=== PATIENT | male | born 1945 | race Caucasian/White ===

== ENCOUNTER 2018-07-17 16:50 | Inpatient (IN) ==
[2018-07-17] MEDS ORDERED: IOPAMIDOL 100 ML BOTTLE IV ONE (16:51)
[2018-07-17] MEDS ORDERED: IPRATROPIUM/ALBUTEROL 3 ML AMPUL.NEB NEB ONE (17:22)
[2018-07-17] MEDS ORDERED: ACETAMINOPHEN 1,000 MG/100 ML BOTTLE IV ONE (17:54)
--- NOTE | 2018-07-17 17:57 | XRay Report ---
INDICATION: Dyspnea TECHNIQUE: PA and lateral upright chest x-ray COMPARISON: Previous chest x-rays dated 06/25/2018, 01/22/2013 FINDINGS:Hyperexpansion and changes consistent with COPD. No focal pulmonary parenchymal infiltrate or mass. Heart size and vascularity are normal. Marine and mediastinum are negative. No pleural fluid. IMPRESSION: 1. Probable COPD 2. No acute abnormality. No interval change Interpreted and Authenticated by: Dandre Raza 07/17/18
[2018-07-17] MEDS ORDERED: 0.9 % SODIUM CHLORIDE 1,000 ML IV ONE (18:18)
[2018-07-17 18:19] LABS: ALT/SGPT 8 U/l (0-40); Albumin/Globulin Ratio 1.7 (1.0-2.3); Alkaline Phosphatase 100 U/L (39-117); Blood Urea Nitrogen 8 mg/dl (8-23)
[2018-07-17 19:34] LABS: Mean Cell Volume 88.6 fL (80.0-100.0); Mean Corpuscular HGB Conc 33.8 g/dL (31.0-36.0); Platelet Count 245 K/mcL (140-440); RBC 4.32 M/mcL (4.50-5.90); Red Cell Distribution Width 12.6 % (11.5-14.5)
[2018-07-17 19:55] LABS: Band Neutrophils % 9 % (0-10); Lymphocytes % 4 % (15-49); Monocytes % (Manual) 4 % (1-12); Platelet Estimate NORMAL (NORMAL); RBC Morphology NORMAL (NORMAL); Segmented Neutrophils % 80 % (38-78)
--- NOTE | 2018-07-17 19:57 | Emergency Department Note ---
SOB HPI - General Chief Complaint: Shortness of Breath/Dyspnea Stated Complaint: SOB/COPD Time Seen by Provider: 07/17/18 17:58 Source: patient Mode of arrival: ambulatory Limitations: no limitations - History of Present Illness 72-year-old male presents with shortness of breath. He did get a little bit short of breath yesterday but he took his inhaler and he was better. Today he is much more short of breath. States this morning he shuffled much just now and he was fine and had no shortness of breath but this afternoon he was just sitting there and began getting more short of breath. Nothing he does seems to make it better. He does have a cough but not any more than usual. Has known COPD. He does have a fever and chills today. States he might of had some chills yesterday unsure. No sore throat or ear pain. No nasal congestion. No abdominal pain. No nausea, vomiting, or diarrhea. No rash. Does have some body aches and generally does not feel well. - Related Data Home Medications Medication Instructions Recorded Confirmed cholecalciferol (vitamin D3) 2,000 2,000 unit PO ONCE 06/28/16 07/17/18 unit capsule aspirin 81 mg tablet,delayed 81 mg PO QDAY 12/26/16 07/17/18 release Previous Rx's Medication Instructions Recorded lisinopril 10 mg tablet 10 mg PO QDAY #90 tab 09/25/17 ipratropium 20 mcg-albuterol 100 1 puff INHALATION QID #4 g 01/22/18 mcg/actuation mist for inhalation albuterol sulfate HFA 90 2 puff INHALATION Q6H PRN #8.5 g 06/25/18 mcg/actuation aerosol inhaler Allergies Allergy/AdvReac Type Severity Reaction Status Date / Time No Known Drug Allergies Allergy Verified 06/25/18 09:10 Review of Systems All systems ED: reviewed and negative except as stated. Past Medical History - Past Medical History [facility] Narrative: Medical History (Last Reviewed 06/25/18 @ 09:17 by Perla Odonnell PA-C) Cholecystitis (Acute) Colon cancer (Chronic) Hypertension, essential (Chronic) Osteoarthritis (Chronic) Anxiety (Chronic) Tobacco abuse (Chronic) Past Surgical History (Last Reviewed 06/25/18 @ 09:17 by Perla Odonnell PA-C) History of colon resection (Chronic 12/12/12) History of colonoscopy (Chronic 07/17/12) History of ileostomy (Chronic 09/11/13) History of sigmoidoscopy (Chronic 12/12/13) History of surgery (Chronic 09/11/13) Medical history: Reports: cancer (colon cancer), hypertension, osteoporosis Surgical history ED: Reports: colectomy, other (ileostomy with closure) - Social History smoking status: Former smoker Alcohol use: Reports: Unknown Drug use: Reports: none Physical Exam Limitations: no limitations General appearance: alert Head: atraumatic, normocephalic, normal inspection Eye: Present: normal appearance. Absent: conjunctival injection ENT: normal exam, normal oropharynx, mucous membranes moist, TM's normal bilaterally, normal external ear exam Neck: Present: normal inspection, trachea midline. Absent: tenderness, lymphadenopathy Chest: Present: symmetric chest wall rise Respiratory: Present: wheezes (Expiratory wheezes throughout), other (Mildly labored breathing on arrival. Normal respiratory rate after oxygen.). Absent: respiratory distress, stridor, accessory muscle use Cardiovascular: Present: tachycardia Abdominal: Present: soft, normal bowel sounds. Absent: distention, tenderness, guarding, mass Extremities: Present: normal inspection, normal capillary refill. Absent: pedal edema Neurological: Present: alert, oriented X3 Psychiatric: Present: normal affect, normal mood Skin: Present: warm, dry, intact, normal color. Absent: rash, cyanosis, diaphoresis, erythema Course Course Narrative: Patient has remained with oxygen saturations of 88-90% on [address] does show a probable right lower lobe infiltrate. This is consistent with his fever and elevated white count. At 2130 I did speak with the hospitalist, Dr. Bhat who agrees to accept this patient. I will go ahead and place ED transition orders [facility] Vital Signs Temperature 98.1 F 07/17/18 16:51 Pulse Rate 118 H 07/17/18 16:51 Respiratory Rate 28 H 07/17/18 16:51 Pulse Oximetry (%) 86 L 07/17/18 16:51 Temperature 100.3 F H 07/17/18 18:53 Pulse Rate 96 H 07/17/18 20:39 Respiratory Rate 16 07/17/18 20:39 Blood Pressure 128/68 07/17/18 20:39 Pulse Oximetry (%) 94 07/17/18 20:39 Shortness of Breath/Dyspnea - Lab Data Lab results reviewed: Yes I reviewed the patient's lab results. Result diagrams: 07/17/18 17:13 07/17/18 17:13 Lab Results 07/17/18 07/17/18 07/17/18 Range/Units 17:13 17:13 17:13 WBC 11.1 H (4.5-11.0) K/mcL RBC 4.32 L (4.50-5.90) M/mcL Hgb 12.9 L (13.5-16.5) g/dL Hct 38.2 L (41.0-55.0) % MCV 88.6 (80.0-100.0) fL MCH 29.9 (26.0-34.0) pg MCHC 33.8 (31.0-36.0) g/dL RDW 12.6 (11.5-14.5) % Plt Count 245 (140-440) K/mcL MPV 7.6 (7.4-10.4) fL Total Counted 100 Seg Neutrophils % 80 H (38-78) % Band Neutrophils % 9 (0-10) % Lymphocytes % 4 L (15-49) % Monocytes % (Manual) 4 (1-12) % Reactive Lymphocytes 3 H (0-2) % Platelet Estimate Normal (NORMAL) RBC Morphology Normal (NORMAL) VBG Lactic Acid 2.8 H (0.5-2.0) mmol/L Sodium 137 (133-145) mmol/L Potassium 5.0 (3.3-5.1) mmol/L Chloride 97 (96-108) mmol/L Carbon Dioxide 29 (22-30) mmol/L Anion Gap 11.0 (8-16) BUN 8 (8-23) mg/dl Creatinine 0.9 (0.7-1.2) mg/dl GFR Calculation 86 Glucose 111 H (70-105) mg/dL Calcium 9.8 (8.6-10.4) mg/dl Total Bilirubin 1.7 H (0.0-1.0) mg/dL AST 20 (0-37) U/l ALT 8 (0-40) U/l Alkaline Phosphatase 100 (39-117) U/L Total Protein 8.0 (5.9-8.4) gm/dL Albumin 5.0 (3.2-5.2) gm/dL Globulin 3.0 (2.2-3.7) gm/dL Albumin/Globulin Ratio 1.7 (1.0-2.3) Urine Color Urine Appearance Urine pH (5.0-9.0) Ur Specific [place] (1.000-1.035) Urine Protein (NEG) mg/dL Urine Glucose (UA) (NEG) mg/dL Urine Ketones (NEG) mg/dL Urine Occult Blood (<0.03) mg/dL Urine Nitrate (NEG) Urine Bilirubin (NEG) mg/dL Urine Urobilinogen (NEG) mg/dL Ur Leukocyte Esterase (NEG) /uL Urine RBC (0-1) /hpf Urine WBC (0-4) /hpf Ur Squamous Epith Cells (0-4) /hpf Urine Bacteria (0) /hpf Urine Mucus (0) /hpf Ur Culture Indicated? 07/17/18 Range/Units 19:20 WBC (4.5-11.0) K/mcL RBC (4.50-5.90) M/mcL Hgb (13.5-16.5) g/dL Hct (41.0-55.0) % MCV (80.0-100.0) fL MCH (26.0-34.0) pg MCHC (31.0-36.0) g/dL RDW (11.5-14.5) % Plt Count (140-440) K/mcL MPV (7.4-10.4) fL Total Counted Seg Neutrophils % (38-78) % Band Neutrophils % (0-10) % Lymphocytes % (15-49) % Monocytes % (Manual) (1-12) % Reactive Lymphocytes (0-2) % Platelet Estimate (NORMAL) RBC Morphology (NORMAL) VBG Lactic Acid (0.5-2.0) mmol/L Sodium (133-145) mmol/L Potassium (3.3-5.1) mmol/L Chloride (96-108) mmol/L Carbon Dioxide (22-30) mmol/L Anion Gap (8-16) BUN (8-23) mg/dl Creatinine (0.7-1.2) mg/dl GFR Calculation Glucose (70-105) mg/dL Calcium (8.6-10.4) mg/dl Total Bilirubin (0.0-1.0) mg/dL AST (0-37) U/l ALT (0-40) U/l Alkaline Phosphatase (39-117) U/L Total Protein (5.9-8.4) gm/dL Albumin (3.2-5.2) gm/dL Globulin (2.2-3.7) gm/dL Albumin/Globulin Ratio (1.0-2.3) Urine Color Yellow Urine Appearance Clear Urine pH 6.0 (5.0-9.0) Ur Specific [place] 1.016 (1.000-1.035) Urine Protein Neg (NEG) mg/dL Urine Glucose (UA) Negative (NEG) mg/dL Urine Ketones 5/tr A (NEG) mg/dL Urine Occult Blood Neg (<0.03) mg/dL Urine Nitrate Neg (NEG) Urine Bilirubin Neg (NEG) mg/dL Urine Urobilinogen 4.0 A (NEG) mg/dL Ur Leukocyte Esterase Neg (NEG) /uL Urine RBC 0 (0-1) /hpf Urine WBC < 1 (0-4) /hpf Ur Squamous Epith Cells 0 (0-4) /hpf Urine Bacteria 0 (0) /hpf Urine Mucus Few (0) /hpf Ur Culture Indicated? No - Radiology Data Radiology results reviewed: Yes I reviewed the patient's radiology results. Disposition Pt seen by [facility]EN[facility] BINDER/PA only: No Clinical Impression: SOB (shortness of breath), Hypoxia, Pneumonia, Lesion of pancreas Disposition: Xfer As Outpt/Obs ([facility]) Condition: Fair Referrals: Hammad Nieves MD [Primary Care Provider] - Time of Disposition: 21:43
[2018-07-17 19:59] LABS: Appearance,Urine CLEAR; Bacteria,Urine 0 /hpf (0); Bilirubin,Urine NEG (NEG); Color,Urine YELLOW; Glucose,Urine (UA) NEGATIVE (NEG); Leukocyte Esterase,Urine NEG /uL (NEG); Mucus,Urine FEW /hpf (0); Protein,Urine NEG (NEG); Specific Gravity,Urine 1.016 (1.000-1.035); Urine Blood NEG mg/dL (<0.03); Urine RBC 0 /hpf (0-1); Urine Squamous Epithelial Cell 0 /hpf (0-4); Urine WBC < 1 /hpf (0-4)
--- NOTE | 2018-07-17 21:02 | Cat Scan Report ---
CLINICAL INFORMATION: sob, hypoxia, fever COMPARISON: Chest x-rays dated 07/17/2018, 06/25/2018 TECHNIQUE: Axial contrast enhanced images through the chest. Sagittally and coronally reformatted images. MIP reformatted images. 80 mL contrast material injected intravenously. FINDINGS: Focal right lower lobe infiltrate. No dense consolidation. Infiltrate is nonspecific. No pneumonia is possible. A well-defined discrete mass is not identified. No evidence for malignancy. There is mild parenchymal density at the left lung base consistent with atelectasis. There is mild lingular density probably represents chronic scarring. Lungs are otherwise negative. No hilar or mediastinal lymphadenopathy. No axillary or supraclavicular adenopathy. No pleural fluid. No pericardial fluid. There is ordinary artery calcification No acute thoracic compression fractures. Sternum and ribs are negative. There is a 5 cm mass which is contiguous with the body of the pancreas. This is not imaged in its entirety. This appears solid. Pancreatic malignancy is possible. Routine abdominal CT scan is recommended for further evaluation. No other abnormalities in the upper abdomen IMPRESSION: 1. Nonspecific right lower lobe infiltrate may represent pneumonia 2. 5 cm mass which is contiguous the body of the pancreas. Further evaluation is necessary to evaluate for pancreatic malignancy The exam was performed using radiation dose optimization techniques including, but not limited to, automated exposure control, adjustment of the mA and/or kV according to patient size and use of iterative reconstruction technique. Interpreted and Authenticated by: Dandre Raza 07/17/18
[2018-07-17] MEDS ORDERED: LEVOFLOXACIN 500 MG/100 ML BAG IV ONE (21:19)
[2018-07-17] MEDS ORDERED: ACETAMINOPHEN 325 MG TABLET PO PRN ×2 (21:43→23:37)
[2018-07-17] MEDS ORDERED: ONDANSETRON 4 MG/2 ML VIAL IV PRN ×2 (21:43→23:37)
--- NOTE | 2018-07-17 21:43 | Emergency Department Note ---
ED Note Addendum Note Addendum: I discussed this patient with the mid-level provider and agree with splint and plan for admission for pneumonia
[2018-07-17] MEDS ORDERED: LEVOFLOXACIN 500 MG/100 ML BAG IV SCH (22:00)
[2018-07-17] MEDS ORDERED: 0.9 % SODIUM CHLORIDE 1,000 ML IV SCH (22:00)
--- NOTE | 2018-07-17 23:15 | Internal Med History&Physical ---
Medical - H&P: [facility] Patient information: Note initiated : 07/17/18 at 11:12 pm Service Date, if different from initiated Date: [] Patient: Dandre Rios 72 y/o M admitted on 07/17/18 for SOB/COPD. Chief Complaint: [] History of present illness: Mr. Rios is a 72 year old M Presented with shortness of breath and fever chills. Patient states that he started to feel short of breath yesterday while he was outside. When side used his inhaler and felt better. [place] fine the rest of the day. This morning he was outside shoveling and went in later in the day around 3 he started to notice shortness of breath especially after he had went up and down the stairs 3 times. He did not use his inhaler since he used it before the activity and is afraid to use it so soon. He went in the ED. He does have a cough but it is not particularly worse. He did come back from a cruise several months ago got ill afterwards and went to the doctor and received a Z-Satish where his cough did improve. Still has a bit of a chronic cough but it is better what is bad. But he did notice fevers and chills today. Denies chest pain. No abdominal pain nausea vomiting diarrhea. Uses inhalers at home but is not on home oxygen. In the ED was evaluated and found to have a right lower lobe pneumonia with elevated lactate tachycardia tachypnea fever. CT abdomen did show an incidentally found 5 cm pancreatic mass in body. Review of Systems: Pertinent positives as above. Denies headache/fever/chills/nausea/vomiting/chest or abdominal pain/diarrhea. Remaining 10 point review of systems reviewed negative Medical - H&P: PMH Medical history: Medical History (Last Reviewed 06/25/18 @ 09:17 by Perla Odonnell PA-C) Cholecystitis (Acute) Colon cancer (Chronic) Hypertension, essential (Chronic) Osteoarthritis (Chronic) Anxiety (Chronic) Tobacco abuse (Chronic) Past Surgical History (Last Reviewed 06/25/18 @ 09:17 by Perla Odonnell PA-C) History of colon resection (Chronic 12/12/12) History of colonoscopy (Chronic 07/17/12) History of ileostomy (Chronic 09/11/13) History of sigmoidoscopy (Chronic 12/12/13) History of surgery (Chronic 09/11/13) Family History (Last Reviewed 06/25/18 @ 09:17 by Perla Odonnell PA-C) Father Malignant neoplasm of lung Brother Malignant neoplasm Acute myocardial infarction Unknown Peritonitis Mother Arthritis Social History (Last Updated 06/25/18 @ 10:22 by Perla Odonnell PA-C) Patient quit smoking 11 years ago drinks alcohol occasionally lives at home with his Medical - H&P: Meds Home Medications Medication Instructions Recorded Confirmed Type cholecalciferol (vitamin D3) 2,000 2,000 unit PO ONCE 06/28/16 07/17/18 History unit capsule aspirin 81 mg tablet,delayed 81 mg PO QDAY 12/26/16 07/17/18 History release lisinopril 10 mg tablet 10 mg PO QDAY #90 tab 09/25/17 07/17/18 Rx ipratropium 20 mcg-albuterol 100 1 puff INHALATION QID #4 g 01/22/18 07/17/18 Rx mcg/actuation mist for inhalation albuterol sulfate HFA 90 2 puff INHALATION Q6H PRN #8.5 g 06/25/18 07/17/18 Rx mcg/actuation aerosol inhaler Allergies Allergy/AdvReac Type Severity Reaction Status Date / Time No Known Drug Allergies Allergy Verified 06/25/18 09:10 Medical - H&P: Exam - Constitutional Vitals: Temp Pulse Resp BP Pulse Ox 100.3 F H 88 19 115/68 94 07/17/18 18:53 07/17/18 22:08 07/17/18 22:08 07/17/18 22:08 07/17/18 22:08 Exam: General: Alert, Awake, No acute Distress Eyes/N/T: EOMI, PEERL, DMM Head/Neck: neck supple, normocephalic atraumatic CV: RRR, No murmurs, normal s1/s2 Pulm: Bilateral expiratory wheezing. Diminished bases, mild rhonchi abd: soft, nontender, +BS x4 Ext: no clubbing/cyanosis/edema Neuro: Alert, no focal deficits, moves all extremities, CN 2-12 grossly intact, symmetrical strength b/l upper/lower, sensations intact b/l upper/lower Skin: warm/dry Medical - H&P: Reslt - Labs CBC & Chem 7: 07/17/18 17:13 07/17/18 17:13 Labs: Short CBC 07/17/18 Range/Units 17:13 WBC 11.1 H (4.5-11.0) K/mcL Hgb 12.9 L (13.5-16.5) g/dL Hct 38.2 L (41.0-55.0) % Plt Count 245 (140-440) K/mcL BMP 07/17/18 17:13 Sodium 137 Potassium 5.0 Chloride 97 Carbon Dioxide 29 BUN 8 Creatinine 0.9 Glucose 111 H Calcium 9.8 Liver Function 07/17/18 Range/Units 17:13 Total Bilirubin 1.7 H (0.0-1.0) mg/dL AST 20 (0-37) U/l ALT 8 (0-40) U/l Alkaline Phosphatase 100 (39-117) U/L Albumin 5.0 (3.2-5.2) gm/dL Urine 07/17/18 Range/Units 19:20 Urine Color Yellow Urine Appearance Clear Urine pH 6.0 (5.0-9.0) Ur Specific [place] 1.016 (1.000-1.035) Urine Protein Neg (NEG) mg/dL Urine Glucose (UA) Negative (NEG) mg/dL - Impressions CT chest with right lobe L infiltrate and 5 cm mass in the body of pancreas Medical - H&P: A/P - Narrative A/P Narrative: A: *Pneumonia, community acquired: *AECOPD (does not use home oxygen) *Acute hypoxic respiratory failure: *Sepsis: *Pancreatic mass, incidental, 5 cm: History of colon cancer; follows with Dr. mendzoa *Hypertension * * P: -IV fluids, follow-up lactate -Rocephin/azithromycin -Pending blood and sputum cultures -Check pro-calcitonin and trend -steroids (wean), Nebs/RT, IS/Acapella -CA19-9 and CEA, f/u with Dr. Mendoza for pancreatic mass -CT abd/pelvis, just received contrast study so will wait several days - - -ppx: lovenox DNR
[2018-07-17] MEDS ORDERED: cefTRIAXone 2 GM in DEXTROSE 5% IN WATER 50 ML IV ONE (23:37)
[2018-07-17] MEDS ORDERED: SENNOSIDES 1 TABLET PO PRN (23:37)
[2018-07-17] MEDS ORDERED: MAGNESIUM SULFATE 2 GM/50 ML BAG IV PRN (23:37)
[2018-07-17] MEDS ORDERED: methylPREDNISolone SOD SUCC 125 MG/2 ML VIAL IV ONE (23:37)
[2018-07-17] MEDS ORDERED: POTASSIUM CHLORIDE 40 MEQ in DEXTROSE 5% IN WATER 500 ML IV PRN (23:37)
[2018-07-17] MEDS ORDERED: POLYETHYLENE GLYCOL 3350 17 GM PACKET PO PRN (23:37)
[2018-07-17] MEDS ORDERED: AZITHROMYCIN 500 MG in DEXTROSE 5% IN WATER 250 ML IV SCH (23:37)
[2018-07-17] MEDS ORDERED: POTASSIUM CHLORIDE 20 MEQ TABLET PO PRN ×2 (23:37)
[2018-07-17] MEDS ORDERED: PROMETHAZINE 12.5 MG SUPP.RECT PR PRN (23:37)
[2018-07-17] MEDS: 0.9 % SODIUM CHLORIDE 1,000 ML IV SCH (23:42)
[2018-07-17] MEDS ORDERED: methylPREDNISolone SOD SUCC 125 MG/2 ML VIAL ONE (23:44)
[2018-07-17] MEDS ORDERED: cefTRIAXone 1 GM VIAL ONE (23:52)
[2018-07-18] MEDS ORDERED: IPRATROPIUM/ALBUTEROL 3 ML AMPUL.NEB NEB ONE (00:13)
[2018-07-18] MEDS: IPRATROPIUM/ALBUTEROL 3 ML AMPUL.NEB NEB SCH ×4 (00:15→19:30)
[2018-07-18 01:18] LABS: C-Reactive Protein 3.2 mg/dl (0.0-0.8)
[2018-07-18] MEDS: 0.9 % SODIUM CHLORIDE 10 ML SYRINGE IV SCH ×3 (05:01→20:03)
[2018-07-18 06:13] LABS: Mean Cell Volume 89.2 fL (80.0-100.0); Mean Corpuscular HGB Conc 33.5 g/dL (31.0-36.0); Platelet Count 255 K/mcL (140-440); RBC 4.51 M/mcL (4.50-5.90); Red Cell Distribution Width 13.1 % (11.5-14.5)
[2018-07-18 06:32] LABS: ALT/SGPT 8 U/l (0-40); Albumin 4.3 gm/dL (3.2-5.2); Albumin/Globulin Ratio 1.5 (1.0-2.3); Alkaline Phosphatase 84 U/L (39-117); Bilirubin,Direct 0.3 mg/dL (0.0-0.3); Blood Urea Nitrogen 8 mg/dl (8-23); Gamma Glutamyl Transpeptidase 63 U/L (8-61); Uric Acid 4.7 mg/dL (2.5-8.0)
--- NOTE | 2018-07-18 07:11 | Internal Med Progress Note ---
Medical - PN: Subj Patient information: Note initiated : 07/18/18 at 7:06 am Service Date, if different from initiated Date: [] Patient: Dandre Rios 72 y/o M admitted on 07/17/18 for SOB/COPD. Chief Complaint: [] Interval history: Mr. Rios is a 72 year old M Presented with shortness of breath and fever chills. Patient states that he started to feel short of breath yesterday while he was outside. When side used his inhaler and felt better. [place] fine the rest of the day. This morning he was outside shoveling and went in later in the day around 3 he started to notice shortness of breath especially after he had went up and down the stairs 3 times. He did not use his inhaler since he used it before the activity and is afraid to use it so soon. He went in the ED. He does have a cough but it is not particularly worse. He did come back from a cruise several months ago got ill afterwards and went to the doctor and received a Z-Satish where his cough did improve. Still has a bit of a chronic cough but it is better what is bad. But he did notice fevers and chills today. Denies chest pain. No abdominal pain nausea vomiting diarrhea. Uses inhalers at home but is not on home oxygen. In the ED was evaluated and found to have a right lower lobe pneumonia with elevated lactate tachycardia tachypnea fever. CT abdomen did show an incidentally found 5 cm pancreatic mass in body. 07/18 Slept okay. No overnight events. Nursing weaning down oxygen. Has cough which he states is not too bad, is able to do sputum for sample. Shortness of breath is improving. Overall feeling improved. Review of Systems: denies headache/fever/chills/nausea/vomiting/chest or abdominal pain/diarrhea. Otherwise see above. - Constitutional Vitals: Vital Signs Temp Pulse Resp BP Pulse Ox 98.8 F 80 18 121/76 96 07/18/18 04:00 07/18/18 04:00 07/18/18 04:00 07/18/18 04:00 07/18/18 04:00 Period Temp Pulse Resp BP Sys/Luciano Pulse Ox Last 24 Hr 98.1 F-104.1 F 80-120 16-28 114-204/68-100 86-96 Intake and Output 07/17/18 07/18/18 07/18/18 21:59 05:59 13:59 Intake Total 1100 240 300 Output Total 700 Balance 1100 -460 300 Weight 81.647 kg 77.706 kg Intake & Output: Intake & Output 07/17/18 07/18/18 07/18/18 21:59 05:59 13:59 Intake Total 1100 240 300 Output Total 700 Balance 1100 -460 300 Weight 81.647 kg 77.706 kg Intake: Nourishment/Supplement quantity 140 (ml) IV 1100 100 300 Sodium Chloride 0.9% 1,000 ml @ 1000 Wide Open IV BOLUS ONE Rx#: [id number] Zithromax 500 mg In Dextrose 5% 250 in Water 250 ml @ 250 mls/hr IV Q24H [facility] Rx#:[id number] Rocephin 2 gm In Dextrose 5% in 50 Water 50 ml @ 100 mls/hr IV ONCE ONE Rx#:[id number] Output: Void Amount 700 Other: Meal Nourishment/Supplement Percent of Meal Consumed 100% Feeding Ability Independent Nourishment/Supplement name jello/fruit cup Urine Appearance Clear Urine Color Bright Yellow Urine Odor Normal Stool Size Smear Stool Color Brown Stool Consistency Loose # Voids 1 # Bowel Movements 1 Exam: General: Alert, Awake, No acute Distress Eyes/N/T: EOMI, Head/Neck: neck supple, CV: RRR, No murmurs, Pulm: Diminished b/l, no appreciable wheeze today abd: soft, nontender, +BS x4 Ext: no clubbing/cyanosis/edema Neuro: Alert, no focal deficits, moves all extremities, Skin: warm/dry Medical - PN: Obj Da - Labs CBC & Chem 7: 07/18/18 03:35 07/18/18 03:35 Labs: Abnormal Lab Results 07/18/18 07/18/18 07/17/18 03:35 03:35 23:50 WBC 14.4 H RBC Hgb Hct 40.2 L Seg Neutrophils % Lymphocytes % Reactive Lymphocytes VBG Lactic Acid Glucose 123 H Phosphorus 1.6 L Total Bilirubin 1.8 H GGT 63 H C-Reactive Protein 3.2 H Urine Ketones Urine Urobilinogen 07/17/18 07/17/18 07/17/18 23:50 19:20 17:13 WBC RBC Hgb Hct Seg Neutrophils % Lymphocytes % Reactive Lymphocytes VBG Lactic Acid 2.8 H 2.8 H Glucose Phosphorus Total Bilirubin GGT C-Reactive Protein Urine Ketones 5/tr A Urine Urobilinogen 4.0 A 07/17/18 07/17/18 17:13 17:13 WBC 11.1 H RBC 4.32 L Hgb 12.9 L Hct 38.2 L Seg Neutrophils % 80 H Lymphocytes % 4 L Reactive Lymphocytes 3 H VBG Lactic Acid Glucose 111 H Phosphorus Total Bilirubin 1.7 H GGT C-Reactive Protein Urine Ketones Urine Urobilinogen Meds: Medications Acetaminophen (Tylenol) 650 mg PO Q6HP PRN PRN Reason: PAIN/FEVER > 101 Albuterol/Ipratropium (Duoneb) 3 ml NEB Q6HRT [facility] Last Admin: 07/18/18 00:15 Dose: 3 ml Documented by: Aspirin (Aspirin) 81 mg PO DAILY [facility] Ceftriaxone Sodium (Rocephin) 1 gm IV DAILY [facility] Docusate Sodium (Colace) 100 mg PO BID [facility] Enoxaparin Sodium (Lovenox) 40 mg SQ DAILY [facility] Potassium Chloride 40 meq/ (Dextrose) 520 mls @ 130 mls/hr IV ONCE PRN PRN Reason: Potassium < 3 Magnesium Sulfate (Magnesium Sulfate) 2 gm in 50 mls @ 50 mls/hr IV ONCE PRN PRN Reason: Magnesium </= 1.6 Sodium Chloride (Sodium Chloride 0.9%) 1,000 mls @ 125 mls/hr IV .Q8H [facility] Stop: 07/18/18 15:36 Last Admin: 07/17/18 23:42 Dose: Not Given Documented by: Azithromycin 500 mg/ Dextrose 250 mls @ 250 mls/hr IV DAILY [facility] Stop: 07/19/18 09:59 Lisinopril (Zestril) 10 mg PO QDAY [facility] Ondansetron HCl (Zofran) 4 mg IV Q4HP PRN PRN Reason: Nausea And Vomiting Polyethylene Glycol (Miralax) 17 gm PO DAILYP PRN PRN Reason: Constipation Potassium Chloride (Kdur) 40 meq PO ONCE PRN PRN Reason: Potassium is 3-3.5 Potassium Chloride (Kdur) 40 meq PO ONCE PRN PRN Reason: Potassium < 3 [facility]) [facility] Promethazine HCl (Phenergan) 12.5 mg DE Q6HP PRN PRN Reason: Pain Senna (Senokot) 2 tab PO HSP PRN PRN Reason: Constipation Sodium Chloride (Saline Flush) 10 ml IV Q8 [facility] Last Admin: 07/18/18 05:01 Dose: Not Given Documented by: Medical - PN: A/P - Time Spent With Patient Total time spent is greater than 50% in coordination of care (as documented) at patient's floor/unit and/or counseling patient: - Narrative A/P Narrative: A: *Pneumonia, community acquired: -Sputum stain with gram neg diplococci (suspect moraxella catarrhalis in COPD pt) *AECOPD (does not use home oxygen) *Acute hypoxic respiratory failure: -3L NC on admit, down to 1L *Sepsis: -lactic acidosis resolved -leukocy *Pancreatic mass, incidental, 5 cm: History of colon cancer; follows with Dr. mendoza -CA19-9 and CEA unremarkable *Hypertension: on an ACEI * P: -IV fluids d/c today, fol -Rocephin changed to zosyn given bandemia/pct elevation, azithromycin -Pending blood and sputum cultures -trend PCT -steroids (wean), Nebs/RT, IS/Acapella -f/u with Dr. Mendoza for pancreatic mass -CT abd/pelvis, just received contrast study so will wait several days - -ppx: lovenox Medical - PN: Qual - VTE Deep Vein Thrombosis/Pulmonary Embolism Present on Admission: No
[2018-07-18 07:16] LABS: Band Neutrophils % 13 % (0-10); Lymphocytes % 3 % (15-49); Monocytes % (Manual) 4 % (1-12); Platelet Estimate NORMAL (NORMAL); RBC Morphology NORMAL (NORMAL); Segmented Neutrophils % 80 % (38-78)
[2018-07-18] MEDS: PIPERACILLIN SODIUM/TAZOBACTAM 3.375 GM in DEXTROSE 5% IN WATER 50 ML IV SCH ×4 (07:25→23:58)
[2018-07-18] MEDS: LISINOPRIL 10 MG TABLET PO SCH (08:35)
[2018-07-18] MEDS: ASPIRIN 81 MG TAB.CHEW PO SCH (08:37)
[2018-07-18] MEDS: predniSONE 20 MG TABLET PO SCH (08:38)
[2018-07-18] MEDS: DOCUSATE SODIUM 100 MG CAPSULE PO SCH ×2 (09:21→19:55)
[2018-07-18] MEDS: ENOXAPARIN 40 MG/0.4 ML SYRINGE SQ SCH (09:23)
[2018-07-18] MEDS: NEUTRA PHOS 1 PACKET PO SCH ×3 (09:23→20:03)
[2018-07-18] MEDS: 0.9 % SODIUM CHLORIDE 1,000 ML IV SCH (09:24)
[2018-07-18] MEDS: AZITHROMYCIN 500 MG in DEXTROSE 5% IN WATER 250 ML IV SCH (14:46)
[2018-07-18] MEDS ORDERED: cefTRIAXone 1 GM VIAL IV SCH (15:00)
[2018-07-18] MEDS ORDERED: cefTRIAXone 1 GM in DEXTROSE 5% IN WATER 50 ML IV SCH (20:00)
[2018-07-19] MEDS: IPRATROPIUM/ALBUTEROL 3 ML AMPUL.NEB NEB SCH ×2 (00:46→07:25)
[2018-07-19] MEDS: PIPERACILLIN SODIUM/TAZOBACTAM 3.375 GM in DEXTROSE 5% IN WATER 50 ML IV SCH (05:37)
[2018-07-19] MEDS: 0.9 % SODIUM CHLORIDE 10 ML SYRINGE IV SCH ×3 (05:38→09:09)
[2018-07-19 05:50] LABS: Basophils # (Auto) 0 K/mcL (0.0-0.3); Basophils % (Auto) 0 % (0.0-2.0); Eosinophils # (Auto) 0 K/mcL (0.0-0.7); Eosinophils % (Auto) 0 % (0.0-7.0); Granulocytes % (Auto) 87.7 % (38.0-78.0); Lymphocytes # (Auto) 0.8 K/mcL (1.5-4.8); Mean Cell Volume 91.2 fL (80.0-100.0); Mean Corpuscular HGB Conc 32.8 g/dL (31.0-36.0); Monocytes # (Auto) 0.8 K/mcL (0.1-0.9); Monocytes % (Auto) 6.3 % (1.0-12.0); Platelet Count 249 K/mcL (140-440); RBC 4.11 M/mcL (4.50-5.90); Red Cell Distribution Width 13.1 % (11.5-14.5)
[2018-07-19 06:09] LABS: ALT/SGPT 9 U/l (0-40); Albumin 3.8 gm/dL (3.2-5.2); Albumin/Globulin Ratio 1.4 (1.0-2.3); Alkaline Phosphatase 68 U/L (39-117); Bilirubin,Direct < 0.2 mg/dL (0.0-0.3); Blood Urea Nitrogen 13 mg/dl (8-23); Gamma Glutamyl Transpeptidase 50 U/L (8-61); Uric Acid 2.5 mg/dL (2.5-8.0)
[2018-07-19] MEDS ORDERED: IOPAMIDOL 100 ML BOTTLE IV ONE (08:57)
[2018-07-19] MEDS: predniSONE 20 MG TABLET PO SCH (09:06)
[2018-07-19] MEDS: ASPIRIN 81 MG TAB.CHEW PO SCH (09:08)
[2018-07-19] MEDS: LISINOPRIL 10 MG TABLET PO SCH (09:08)
[2018-07-19] MEDS: AZITHROMYCIN 500 MG in DEXTROSE 5% IN WATER 250 ML IV SCH (09:09)
[2018-07-19] MEDS: ENOXAPARIN 40 MG/0.4 ML SYRINGE SQ SCH (09:09)
--- NOTE | 2018-07-19 09:21 | Cat Scan Report ---
CLINICAL INFORMATION: Possible pancreatic mass demonstrated on chest CT COMPARISON: Previous chest CT scan dated 07/17/2018. Previous abdominal pelvic CT scan dated 07/25/2012. TECHNIQUE: Axial images were obtained through the abdomen and pelvis. Sagittally and coronally reformatted images. 80 mL contrast material injected intravenously. Oral contrast material was not administered FINDINGS: Previous chest CT scan demonstrated a possible 5 cm mass adjacent to or arising from the pancreas. This was on the most caudal images. Present examination is negative. Pancreas is normal. No pancreatic mass. The apparent mass demonstrated previously was secondary to matted small bowel. This appearance has changed and is benign. Lung bases are negative. No parenchymal infiltrate or mass. No pleural fluid. No pericardial fluid. Negative liver. No focal intrahepatic abnormality. No evidence for hepatic metastases. Liver contour is smooth. No ascites. Gallbladder has been removed. No intrahepatic bile duct dilatation. Common bile duct is normal. Spleen is negative. No splenomegaly. Normal enhancement splenic and portal veins. Negative adrenal glands. There is a large left renal cyst. This measures 7.8 cm maximally. This has increased slightly in size since 07/25/2012. No solid renal mass. No hydronephrosis. Patient has a history of rectal cancer. There is an anastomotic suture line in the pelvis. No evidence for recurrent tumor. No detectable colonic mass. There is also an enterocolonic anastomosis in the right side of the abdomen. No retroperitoneal lymphadenopathy. No mesenteric adenopathy. There is a small umbilical hernia. This measures 2 cm in cross-sectional diameter. This contains only mesenteric fat. There are bilateral inguinal hernias. There is mild protrusion of small bowel on the right. There is extension of small bowel into a left inguinal hernia. Small bowel extends for a length of approximately 10 cm toward the base of the scrotum. No mechanical small bowel obstruction. No bowel wall thickening. No fluid within the hernia sac. There is calcification of the abdominal aorta. No abdominal aortic aneurysm. Multilevel degenerative disc disease in the lumbar spine. Sacrum and pelvis are negative. IMPRESSION: 1. Normal small bowel loops adjacent to the pancreas. There is no pancreatic or mesenteric mass. Appearance on previous chest CT scan was artifactual. 2. Previous colonic surgery. No detectable recurrent colonic mass. No mechanical small bowel obstruction 3. Bilateral inguinal hernias, left larger than right. No mechanical small bowel obstruction. 4. Umbilical hernia containing only mesenteric fat 5. Large left renal cyst is slightly larger than on 07/25/2012 6. Negative liver. No evidence for hepatic metastases The exam was performed using radiation dose optimization techniques including, but not limited to, automated exposure control, adjustment of the mA and/or kV according to patient size and use of iterative reconstruction technique. Interpreted and Authenticated by: Dandre Raza 07/19/18
--- NOTE | 2018-07-19 09:49 | Discharge Summary ---
Medical - DS: Prov Patient information: Note initiated : 07/19/18 at 9:42 am Service Date, if different from initiated Date: [] Patient: Dandre Rios 73 y/o M admitted on 07/17/18 for SOB/COPD. Chief Complaint: [] Date of admission: 07/17/18 22:30 Discharge date: 07/19/18 Primary care physician: Hammad Nieves MD Consults: 07/17/18 Consult to Physician [CONS] Stat Comment: Consulting Provider: Jose Enrique Bhat Reason For Exam: Physician to Consult Discharging clinician: Archie Burch Medical - DS: Meds - Discharge Medications Prescriptions: Levofloxacin [Levaquin] 750 mg PO DAILY #5 tab predniSONE [Prednisone] 40 mg PO QAC #10 tab Active and Home Medications: Home Medications cholecalciferol (vitamin D3) 2,000 unit capsule 2,000 unit PO QAM 06/28/16 [History Confirmed 07/18/18 Last Taken 07/17/18 08:00] aspirin 81 mg tablet,delayed release 81 mg PO QDAY 12/26/16 [History Confirmed 07/18/18 Last Taken 07/17/18 08:00] lisinopril 10 mg tablet 10 mg PO QDAY #90 tab 09/25/17 [Rx Confirmed 07/18/18 Last Taken 07/17/18 08:00] ipratropium 20 mcg-albuterol 100 mcg/actuation mist for inhalation 1 puff INHALATION QID #4 g 01/22/18 [Rx Confirmed 07/18/18 Last Taken 07/17/18 12:00] albuterol sulfate HFA 90 mcg/actuation aerosol inhaler 2 puff INHALATION Q6H PRN #8.5 g 06/25/18 [Rx Confirmed 07/18/18 Last Taken 07/17/18 12:00] Medical - DS: Hosp Hospital course: Mr. Rios is a 72 year old M Presented with shortness of breath and fever chills. Patient states that he started to feel short of breath yesterday while he was outside. When side used his inhaler and felt better. [place] fine the rest of the day. This morning he was outside shoveling and went in later in the day around 3 he started to notice shortness of breath especially after he had went up and down the stairs 3 times. He did not use his inhaler since he used it before the activity and is afraid to use it so soon. He went in the ED. He does have a cough but it is not particularly worse. He did come back from a cruise several months ago got ill afterwards and went to the doctor and received a Z-Satish where his cough did improve. Still has a bit of a chronic cough but it is better what is bad. But he did notice fevers and chills today. Denies chest pain. No abdominal pain nausea vomiting diarrhea. Uses inhalers at home but is not on home oxygen. In the ED was evaluated and found to have a right lower lobe pneumonia with elevated lactate tachycardia tachypnea fever. CT abdomen did show an incidentally found 5 cm pancreatic mass in body. 07/18 Slept okay. No overnight events. Nursing weaning down oxygen. Has cough which he states is not too bad, is able to do sputum for sample. Shortness of breath is improving. Overall feeling improved. 07/19 Pt seen examined, no acute issues, off oxygen, ambulating hallway without issue, tolerating po diet well, feels much better, no chest pain reported labs stable. he will be discharged with oral steroids and levofloxacin for [address] of abdomen and pelvis done for pancreatic mass is negative, no tumor noted on the pancreas, CT chest findings likely an artifact. In Summary Pneumonia, community acquired: -To complete 7 days course, will be discharged on levofloxacin 750mg for 5 additional days. -Sputum stain with gram neg diplococci (suspect moraxella catarrhalis in COPD pt) AECOPD (does not use home oxygen)/ Acute hypoxic Resp failure - off oxygen at discharge, ambulating hallway without issues, will continue with home inhalers, combivent to be used 6 times a day for 5 days, then usual home routine. He will complete a 7 day course of steroids, 5 more days of prednisone after discharge. Sepsis: resolved Pancreatic mass, incidental, 5 cm: This was noted on CT chest, CT abdomen and plevis done on 07/19, did not show any pancreatic mass, The CT chesrt findings likely an artifcat. History of colon cancer; follows with Dr. mendoza Discharge diagnosis: Pneumonia, copd exacerbation - Time Spent with Patient Total time spent providing and/or coordinating discharge services: Greater than 30 minutes Medical - DS: Exam - Constitutional Vitals: Vital Signs Temp Pulse Pulse Resp BP Pulse Ox 07/19/18 07:43 75 18 07/19/18 07:00 98.1 F 76 18 129/76 98 07/19/18 04:00 99.1 F H 75 20 116/64 96 07/19/18 00:00 98.3 F 86 115/68 94 07/18/18 20:00 90 16 94 07/18/18 19:30 91 H 16 07/18/18 19:13 95 07/18/18 19:09 99.2 F H 90 18 125/64 95 07/18/18 16:00 99.7 F H 18 99/54 96 07/18/18 13:55 88 16 07/18/18 12:20 81 94 07/18/18 12:00 99.1 F H 83 18 121/65 96 Intake and Output 07/18/18 07/19/18 07/19/18 21:59 05:59 13:59 Intake Total 885 170 50 Output Total 825 725 Balance 60 -555 50 Intake: Nourishment/Supplement quantity 120 (ml) IV 425 50 50 Sodium Chloride 0.9% 1,000 ml @ 125 125 mls/hr IV .Q8H [facility] Rx#: [id number] Zithromax 500 mg In Dextrose 5% 250 in Water 250 ml @ 250 mls/hr IV DAILY [facility] Rx#:[id number] Zosyn 3.375 gm In Dextrose 5% 50 50 50 in Water 50 ml @ 100 mls/hr IV Q6H [facility] Rx#:[id number] Oral 460 Output: Void Amount 825 725 Other: Meal Dinner Nourishment/Supplement Percent of Meal Consumed 100% 100% Feeding Ability Independent Independent Nourishment/Supplement name jello/yogurt Urine Appearance Clear Clear Urine Color Bright Yellow Pale Urine Odor Normal # Bowel Movements 1 Weight 185 lb Additional comments: Constitutional; Afebrile, cooperative, alert, not in distress. Eyes- No icterus, , No periorbital swelling Ears- Ext ear normal, hearing normal to conversation. Neck- Midline trachea, supple Respiratory system: Air Entry equal on both sides, No crackles or wheezing, no rhonchi. CVS- Rate rhythm regular, S1,S2 heard, no gallop, no rub. Abdomen- Soft nontender abdomen, no organomegaly, no tenderness, no guarding or rigidity, [employer]- AOOx3, moving all extremities, no gross focal deficit noted. Medical - DS: Data Labs on day of discharge: Labs from last 24 hours 07/19/18 07/19/18 07/19/18 03:30 03:30 03:30 WBC 12.7 H RBC 4.11 L Hgb 12.3 L Hct 37.5 L MCV 91.2 MCH 29.9 MCHC 32.8 RDW 13.1 Plt Count 249 MPV 7.9 Gran % 87.7 H Lymph % (Auto) 6.0 L [place] % (Auto) 6.3 Eos % (Auto) 0 Baso % (Auto) 0 Gran # 11.1 H Lymph # (Auto) 0.8 L [place] # (Auto) 0.8 Eos # (Auto) 0 Baso # (Auto) 0 Sodium 140 Potassium 4.1 Chloride 105 Carbon Dioxide 25 Anion Gap 10.0 BUN 13 Creatinine 0.8 GFR Calculation 89 Glucose 109 H Uric Acid 2.5 Calcium 9.2 Phosphorus 3.4 Magnesium 2.0 Total Bilirubin 0.8 Direct Bilirubin < 0.2 GGT 50 AST 16 ALT 9 Alkaline Phosphatase 68 Lactate Dehydrogenase 145 Total Protein 6.6 Albumin 3.8 Globulin 2.8 Albumin/Globulin Ratio 1.4 Triglycerides 57 Procalcitonin 0.43 Preliminary micro results at discharge 07/17/18 18:19 Blood Culture - Preliminary Blood 07/17/18 17:13 Blood Culture - Preliminary Blood - Impressions CT abdomen and plevis IMPRESSION: 1. Normal small bowel loops adjacent to the pancreas. There is no pancreatic or mesenteric mass. Appearance on previous chest CT scan was artifactual. 2. Previous colonic surgery. No detectable recurrent colonic mass. No mechanical small bowel obstruction 3. Bilateral inguinal hernias, left larger than right. No mechanical small bowel obstruction. 4. Umbilical hernia containing only mesenteric fat 5. Large left renal cyst is slightly larger than on 07/25/2012 6. Negative liver. No evidence for hepatic metastases Chest CT IMPRESSION: 1. Nonspecific right lower lobe infiltrate may represent pneumonia 2. 5 cm mass which is contiguous the body of the pancreas. Further evaluation is necessary to evaluate for pancreatic malignancy Chest X ray IMPRESSION: 1. Probable COPD 2. No acute abnormality. No interval change Interpreted and Authenticated by: Dandre Raza 07/17/18 Medical - DS: A/P - Patient/Caregiver Discharge Instructions Activity: increase activity as tolerated Diet: Low Sodium (2gm), Cardiac - Follow up Plan Follow up with: Hammad Nieves MD [Primary Care Provider] - 07/25/18 7:45 am Disposition: Home, Self-Care Prognosis: Fair Rehab Potential: Fair I certify that the patient requires SNF services: No Overall status at discharge: patient is progressing back to baseline Medical - DS: Qual - VTE Deep Vein Thrombosis/Pulmonary Embolism Present on Admission: No
[2018-07-19] MEDS: DOCUSATE SODIUM 100 MG CAPSULE PO SCH (10:31)
[2018-07-19] MEDS ORDERED: IPRATROPIUM/ALBUTEROL 3 ML AMPUL.NEB NEB SCH (11:00)
== END 2018-07-19 10:50 | disposition home or self-care (01) | DRG 190 ==
LOC: ED 16:50 → ICU 20:30
PROVIDERS: ADMIT Internal Medicine; ATTEND Internal Medicine